=== PATIENT | male | born 1960 | race Caucasian/White ===

== ENCOUNTER 2019-06-19 23:47 | Emergency (ER) | payer OTHER ==
[2019-06-19] MEDS ORDERED: Sodium Chloride 0.9% 10 ML Syringe FLUSH PRN (23:53)
[2019-06-20] MEDS: fentaNYL 100 MCG/2 ML SDV IVPUSH ONE ×2 (00:08→01:10)
--- NOTE | 2019-06-20 00:40 | EDM.PDOC ---
ED HPI GENERAL MEDICAL PROBLEM - General Chief Complaint: Respiratory Problem Stated Complaint: shortness of breath Time Seen by Provider: 06/19/19 23:47 Source of Information: Reports: Patient, EMS History Limitations: Reports: No Limitations - History of Present Illness INITIAL COMMENTS - FREE TEXT/NARRATIVE: Pt. presents to ER with complaints of severe R sided chest pain and increased shortness of breath. Pt. states that he began experiencing the symptoms approx. 1 hour before calling 911. Pt. states that he has a history of 5 spontaneous pneumothoraces in the past. He states that he has had chest tubes and needle chest decompression for this in the past. He states that none of the pneumothoraces resolved spontaneously. Pt. denies any trauma. No recent illness. No cough. No fever or chills. Pt. has a history of COPD and continues to smoke. Onset: Today Onset Date: 06/19/19 Onset Time: 22:30 Location: Reports: Chest, Generalized Quality: Reports: Pressure, Sharp Severity: Severe - Related Data Allergies Allergy/AdvReac Type Severity Reaction Status Date / Time No Known Allergies Allergy Verified 06/19/19 23:53 Home Meds: Home Meds . [No Known Home Meds] 06/20/19 [History] ED ROS GENERAL - Review of Systems Review Of Systems: See Below Constitutional: Reports: No Symptoms HEENT: Reports: No Symptoms Respiratory: Reports: Shortness of Breath, Pleuritic Chest Pain Cardiovascular: Reports: No Symptoms Endocrine: Reports: No Symptoms GI/Abdominal: Reports: No Symptoms : Reports: No Symptoms Musculoskeletal: Reports: No Symptoms Skin: Reports: No Symptoms Neurological: Reports: No Symptoms Psychiatric: Reports: No Symptoms Hematologic/Lymphatic: Reports: No Symptoms Immunologic: Reports: No Symptoms ED EXAM, GENERAL - Physical Exam Exam: See Below Exam Limited By: Respiratory Distress General Appearance: Alert, WD/WN, No Apparent Distress Throat/Mouth: Normal Inspection, Normal Lips, Normal Teeth, Normal Gums, Normal Oropharynx, Normal Voice, No Airway Compromise Head: Atraumatic, Normocephalic Neck: Normal Inspection, Supple, Non-Tender, Full Range of Motion, Other (JVD) Respiratory/Chest: Decreased Breath Sounds, Accessory Muscle Use Cardiovascular: Normal Peripheral Pulses, Regular Rate, Rhythm, No Edema, JVD Peripheral Pulses: 4+: Radial (L) GI/Abdominal: Normal Bowel Sounds, Soft, Non-Tender, No Distention, No Mass Neurological: Alert, Oriented, CN II-XII Intact, Normal Cognition, No Motor/ Sensory Deficits Psychiatric: Normal Affect, Anxious Skin Exam: Warm, Dry, Intact, No Rash ED RESPIRATORY PROCEDURES - Chest Tube Insertion Chest Tube Location: Right Site: Mid Axillary Line, Intercostal Space: Tube Size: Other (True Close device 13 fr) Skin Prep: CDC Guidelines Followed, Chlorhexidine Local Anesthesia - Lidocaine (Xylocaine): 1% Plain Local Anesthetic Volume: 4cc Arias of Air Lares: Yes Number of Attempts: 1 Tube Sutured to Skin: No Post procedure tube position confirmed by: by CXR, by Provider (Pt. was noted to be extremely diaphoretic and tachypneic on arrival to ED. Initial vitals O2 sat 92%, RR 40. Lung sounds diminished on the R. JVD noted; pt. is quite barrel chested/thin. Initial chest x-ray showed approx. 10% pneumothorax on the R. Given his degree of distress, decision was made to place a true close device. Pt. was given IV fentanyl with good relief in discomfort. Pt. chest was prepped and draped in usual sterile fashion. Skin was prepped liberally with chlorhexidine. True close device was placed on first attempt. Air was aspirated with 60cc syringe. Pt. reported continued discomfort and shortness of breath that resolved gradually. Repeat radiographs revealed almost complete resolution of the pneumothorax. Pt. 98%post placement were O2 sat 98% on 2L O2, resp. rate 17. ) Tube Connected to Suction: No Course - Vital Signs Last Recorded V/S: Last Vital Signs Temp 35.6 C 06/19/19 23:47 Pulse 99 06/20/19 01:15 Resp 30 H 06/20/19 01:15 BP 127/87 06/20/19 01:15 Pulse Ox 94 L 06/20/19 01:15 - Orders/Labs/Meds Orders: Active Orders 24 hr Category Date Time Status EKG Documentation Completion [RC] STAT Care 06/19/19 23:53 Active RT Aerosol Therapy [RC] ASDIRECTED Care 06/20/19 00:50 Active Chest 1V Frontal [CR] Stat Exams 06/19/19 23:53 Taken Chest 1V Frontal [CR] Stat Exams 06/20/19 00:30 Taken Sodium Chloride 0.9% [Saline Flush] Med 06/19/19 23:53 Active 10 ml FLUSH ASDIRECTED PRN fentaNYL [Sublimaze] Med 06/20/19 00:45 Active 25 mcg IVPUSH Q2H PRN Peripheral IV Insertion Adult [OM.PC] Routine Oth 06/19/19 23:54 Ordered Medication Orders Fentanyl (Sublimaze) 25 mcg IVPUSH Q2H PRN PRN Reason: Pain Last Admin: 06/20/19 00:49 Dose: 25 mcg Sodium Chloride (Saline Flush) 10 ml FLUSH ASDIRECTED PRN PRN Reason: Keep Vein Open Labs: Laboratory Tests 06/20/19 06/20/19 06/20/19 Range/Units 00:14 00:14 00:14 WBC 8.0 (4.0-10.0) x10^3/uL RBC 4.85 (4.5-6.0) x10^6/uL Hgb 15.5 (14.0-18.0) g/dL Hct 45.6 (40.0-52.0) % MCV 94.0 H (78.0-93.0) fL MCH 32.0 (26.0-32.0) pg MCHC 34.0 (32.0-36.0) g/dL RDW Coeff of Ruy 14.8 (10.0-15.0) % Plt Count 423 H (130-400) x10^3/uL Neut % (Auto) 44.6 L (50.0-80.0) % Lymph % (Auto) 41.4 (25.0-50.0) % [place] % (Auto) 12.6 H (2.0-11.0) % Eos % (Auto) 1.0 (0.0-4.0) % Baso % (Auto) 0.4 (0.2-1.2) % PT 10.5 (10.0-12.8) SEC INR 0.9 L (2.0-3.5) D-Dimer, Quantitative 0.40 (<=0.58) mg/LFEU Sodium 140 (136-145) mmol/L Potassium 4.6 (3.5-5.1) mmol/L Chloride 101 (98-107) mmol/L Carbon Dioxide 31 (21-32) mmol/L Anion Gap 12.6 (10-20) mmol/L BUN 14 (7-18) mg/dL Creatinine 0.7 (0.70-1.30) mg/dL Est Cr Clr Drug Dosing 107.54 mL/min Estimated GFR (MDRD) > 60 Glucose 115 H (74-106) mg/dL Calcium 9.9 (8.5-10.1) mg/dL Corrected Calcium 10.14 H (8.5-10.1) mg/dL Magnesium 1.9 (1.8-2.4) mg/dL Total Bilirubin 0.4 (0.2-1.0) mg/dL AST 28 (15-37) U/L ALT 61 (16-63) U/L Alkaline Phosphatase 105 (46-116) U/L Troponin I < 0.017 (<=0.056) ng/mL C-Reactive Protein 0.7 (<=0.9) mg/dL Total Protein 8.4 H (6.4-8.2) g/dL Albumin 3.7 (3.4-5.0) g/dL Globulin 4.7 Albumin/Globulin Ratio 0.79 Meds: Medications Generic Name Dose Route Start Last Admin Trade Name Freq PRN Reason Stop Dose Admin Fentanyl 25 mcg 06/20/19 00:45 06/20/19 00:49 Sublimaze IVPUSH 25 mcg Q2H PRN Administration Pain Sodium Chloride 10 ml 06/19/19 23:53 Saline Flush FLUSH ASDIRECTED PRN Keep Vein Open Discontinued Medications Generic Name Dose Route Start Last Admin Trade Name Freq PRN Reason Stop Dose Admin Albuterol/Ipratropium 3 ml 06/20/19 00:50 06/20/19 00:54 Duoneb 3.0-0.5 Mg/3 Ml NEB 06/20/19 00:51 3 ml ONETIME ONE Administration Fentanyl 50 mcg 06/19/19 23:54 06/20/19 00:08 Sublimaze IVPUSH 06/19/19 23:55 25 mcg ONETIME ONE Administration Fentanyl 50 mcg 06/20/19 01:06 06/20/19 01:10 Sublimaze IVPUSH 06/20/19 01:07 50 mcg ONETIME ONE Administration Departure - Departure Time of Disposition: 01:37 Disposition: DC/[facility] to [facility] 02 Clinical Impression: Spontaneous pneumothorax - Discharge Information Referrals: [email or web address] [Primary Care Provider] - Forms: ED Department Discharge, Interfacility Transfer EMTALA Sepsis Event Note - Focused Exam Vital Signs: Vital Signs Temp Pulse Resp BP Pulse Ox 06/20/19 01:15 99 30 H 127/87 94 L 06/20/19 00:55 95 25 H 122/84 96 06/19/19 23:47 35.6 C 96 34 H 163/106 H 92 L Date Exam was Performed: 06/20/19 Time Exam was Performed: 01:39 - Problem List Review Problem List Initiated/Reviewed/Updated: Yes - My Orders Last 24 Hours: My Active Orders 06/19/19 23:53 EKG Documentation Completion [RC] STAT Chest 1V Frontal [CR] Stat Sodium Chloride 0.9% [Saline Flush] 10 ml FLUSH ASDIRECTED PRN 06/19/19 23:54 Peripheral IV Insertion Adult [OM.PC] Routine 06/20/19 00:30 Chest 1V Frontal [CR] Stat 06/20/19 00:45 fentaNYL [Sublimaze] 25 mcg IVPUSH Q2H PRN 06/20/19 00:50 RT Aerosol Therapy [RC] ASDIRECTED - Assessment/Plan Last 24 Hours: My Active Orders 06/19/19 23:53 EKG Documentation Completion [RC] STAT Chest 1V Frontal [CR] Stat Sodium Chloride 0.9% [Saline Flush] 10 ml FLUSH ASDIRECTED PRN 06/19/19 23:54 Peripheral IV Insertion Adult [OM.PC] Routine 06/20/19 00:30 Chest 1V Frontal [CR] Stat 06/20/19 00:45 fentaNYL [Sublimaze] 25 mcg IVPUSH Q2H PRN 06/20/19 00:50 RT Aerosol Therapy [RC] ASDIRECTED Plan: Spoke with [facility] regarding transfer of this patient. Transfer to the [facility] was declined. Pt. will be transferred to [facility] in [place]. Dr. Castillo was accepting. Pt. will be transported via [facility] ground ambulance. All questions were answered.
[2019-06-20 00:45] LABS: CHLORIDE,CL 101 mmol/L (98-107); SODIUM,NA 140 mmol/L (136-145)
[2019-06-20 00:46] LABS: ANION GAP 12.6 mmol/L (10-20)
[2019-06-20] MEDS: fentaNYL 100 MCG/2 ML SDV IVPUSH PRN (00:49)
[2019-06-20] MEDS: Albuterol/Ipratropium 3.0-0.5 MG/3 ML Neb Soln NEB ONE (00:54)
[2019-06-20] MEDS ORDERED: Lidocaine 1% 30 ML SDV ONE (04:18)
--- NOTE | 2019-06-20 08:05 | CR ---
[id number] RAD/RAD Chest PA or AP 1V EXAM: RAD Chest PA or AP 1V INDICATION: DYSPNEA, HX OF PNEUMO COMPARISON: None. DISCUSSION: Cardiomediastinal silhouette is normal in size and contour. There is a moderate right pneumothorax measuring up to 1.6 cm. The left lung is clear. No pleural effusion. Multiple old left sided rib fractures. IMPRESSION: Moderate right pneumothorax measuring up to 1.6 cm. Nathaniel Herring DO 06/20/19 0804 Thank you for allowing us to participate in the care of your patient.
--- NOTE | 2019-06-20 08:06 | CR ---
[id number] RAD/RAD Chest PA or AP 1V EXAM: RAD Chest PA or AP 1V INDICATION: PNEUMOTHORAX COMPARISON: Earlier same day. DISCUSSION: Interval placement of a right-sided chest tube with near complete resolution of previously seen moderate right pneumothorax. There is trace residual apical pneumothorax. IMPRESSION: Interval placement of right-sided chest tube with near complete resolution of previously seen right pneumothorax. Nathaniel Herring DO 06/20/19 0805 Thank you for allowing us to participate in the care of your patient.
== END 2019-06-20 01:37 | disposition short-term general hospital (02) ==
LOC: VM.ED 23:47
DX: J93.83 Other pneumothorax (principal); J44.9 Chronic obstructive pulmonary disease, unspecified; F17.210 Nicotine dependence, cigarettes, uncomplicated
CPT/HCPCS: 32550; 32551; 36415; 71045; 80053; 83735; 84484; 85025; 85379; 85610; 86140; 96374; 96376; 99284; 99285; J3010; J7620-GY